=== PATIENT | male | born 1970 | race Caucasian/White ===

== ENCOUNTER 2019-03-06 12:06 | Inpatient (IN) | payer OTHER ==
[~2019-03-06] VITALS: Ht 182.9 cm; Wt 93.0 kg
--- NOTE | ~2019-03-06 | OP ---
[address] [address] OPERATIVE REPORT Name: TOBI RUCKER Room: [address] M.R.#: [id number] Admission: 03/06/19 Attend Phys: Tobi Smith MD Discharge: Date of : 66 Report #: [id number] THIS REPORT FOR: //name// CC: [facility] physician/PCP Tobi Smith DATE OF SERVICE: 03/07/2019 PREOPERATIVE DIAGNOSES: Right ureteropelvic junction stone and flank pain. POSTOPERATIVE DIAGNOSES: Right ureteropelvic junction stone and flank pain. PROCEDURE: Cystoscopy, right retrograde pyelogram, right ureteral stent placement. SURGEON: Ezequiel Sams MD ANESTHESIA: General. ESTIMATED BLOOD LOSS: None. DRAINS: A 6 x 28 right ureteral stent. SPECIMENS: None. COMPLICATIONS: None. INDICATIONS: This is a 48-year-old male who was admitted with right flank pain and a right ureteropelvic junction stone. See the consultation notes for details. Alternatives for management were discussed and he has decided to undergo cystoscopy with right retrograde pyelogram, possible right ureteroscopy, laser lithotripsy, stone extraction, stent placement. Risks of procedure were explained including but not limited to bleeding, infection, anesthesia, cardiopulmonary and vascular events, injuries to urethra, bladder, ureter, possible development of strictures, possible need for multiple stone procedures, possible inability to bypass obstruction. We also discussed the importance of timely followup regarding any stent left in place and the reasoning behind that. Discussed stent symptoms as well. He voices clear understanding of all this and wants to proceed. DESCRIPTION OF PROCEDURE: The patient was pretreated with IV Cipro. After induction of general anesthesia, he was positioned, prepped and draped in the lithotomy position. Timeout was performed. Cystourethroscopy was performed. The anterior urethra was normal. There is mild bilateral lobe impingement in the prostatic urethra. The bladder neck was somewhat elevated. The bladder was entered and systematically examined with 30 and [address] [place] [address] OPERATIVE REPORT Name: TOBI RUCKER Room: [address] [place] .R.#: [id number] Admission: 03/06/19 Attend Phys: Tobi Smith MD Discharge: Date of : 66 Report #: [id number] orifices were orthotopic. No blood was seen from either. There were no urethral or bladder lesions. Fluoroscopic interrogation was consistent with a stone in the region of the right ureteropelvic junction. A 5-Greenlandic ureteral catheter was advanced into the distal right ureter and contrast was given for a retrograde pyelogram. This reveals that the course and caliber of the mid and distal ureter were within normal limits. Proximal ureter was normal up to the ureteropelvic junction where a filling defect was noted. A small amount of contrast gets past this and the renal pelvis appears dilated, but otherwise unremarkable. The catheter was removed and a sensor wire was advanced up the right ureter with fluoroscopic guidance. This was manipulated past the stone and into the renal pelvis. Scope was withdrawn and then replaced alongside the wire for passage of a second wire in a similar fashion. The scope was then withdrawn leaving both wires in place. The original wire was used for passage of 11-Greenlandic obturator in hopes of passing 11/13 Greenlandic ureteral access sheath. The obturator would not pass with gentle manipulation and fluoroscopic guidance with kinking noted in the region of the prostatic urethra/bladder neck. The other wire was removed to try to facilitate passage of the obturator and this was unsuccessful as well. I elected to place a stent to allow for passive dilation and deferred management of his stone. The obturator was withdrawn, leaving the wire in place. The wire was loaded on the cystoscope and used for placement of a 6 x 28 right ureteral stent with good position confirmed in the renal pelvis fluoroscopically and in the bladder visually. Drainage from the stent was clear. The stone was visible alongside the stent in the region of the ureteropelvic junction. The bladder was emptied and the scope was removed. Lidocaine jelly was given per urethra. The patient tolerated the procedure well and was taken to the recovery room in stable condition. Plan will be to obtain a repeat radiograph as an outpatient and discuss again the options of shockwave lithotripsy versus repeat ureteroscopy. By: [id number] Sams MD /yadi
[~2019-03-06 12:06] MED LIST: BACTRIM DS TAB1 EACH PO; IBUPROFEN 800800 M1 PO; KEFLEX500 MG PO; NORCO 5-325 TA1 EACH PO; PHENERGAN 25 MG25 MG PO; TOBREX5 ML OP; ULTRAM 50MG TAB50 MG PO; ZOFRAN4 MG PO
[2019-03-06 12:13] VITALS: BP 147/90
[2019-03-06 12:24] LABS: URINE BILIRUBIN NEGATIVE (Negative); URINE BLOOD 3+ (Negative); URINE CLARITY CLEAR; URINE COLOR YELLOW; URINE GLUCOSE-RANDOM NEGATIVE (Negative); URINE KETONES NEGATIVE (Negative); URINE LEUKOCYTES-REFLEX NEGATIVE (Negative); URINE NITRITE-REFLEX NEGATIVE (Negative); URINE PROTEIN NEGATIVE (Negative); URINE UROBILINOGEN 0.2 E.U./dl (0.2-1.0)
[2019-03-06 12:29] LABS: NUCLEATED RBCS 0 /100WBC
[2019-03-06 12:33] LABS: ABSOLUTE LYMPHOCYTES 1.4 thou/uL (0.8-5.3)
[2019-03-06 12:35] LABS: BACTERIA-REFLEX None Seen /HPF (None Seen); HYALINE CASTS 0-3 Few /LPF (None Seen); MUCUS 4-6 Moderate strn/LPF (None Seen); SQUAMOUS 0-3 Few /LPF (0-3); URINE RBC 3-10 Few /HPF (0-2); URINE WBC-REFLEX None Seen /HPF (0-5)
[2019-03-06 12:36] LABS: CRYSTALS None Seen /LPF (None Seen)
[2019-03-06 12:37] LABS: ANION GAP 7 mmol/L (7-16); BUN 11 mg/dL (7-18); CALCIUM 8.8 mg/dL (8.5-10.1); CHLORIDE 104 mmol/L (98-107); CO2 28 mmol/L (21-32); CREATININE 1.1 mg/dL (0.6-1.3); GLUCOSE 112 mg/dL (70-99); POTASSIUM 4.2 mmol/L (3.5-5.1); SODIUM 139 mmol/L (136-145)
[2019-03-06 12:39] LABS: ABSOLUTE BASOPHILS 0.1 thou/uL (0.0-0.2); ABSOLUTE EOSINOPHILS 0.1 thou/uL (0.0-0.7); ABSOLUTE MONOCYTES 0.8 thou/uL (0.0-1.2); ABSOLUTE NEUTROPHILS 12.9 thou/uL (1.6-8.1); BASOPHILS 0.5 %; EOSINOPHILS 0.6 %; HEMATOCRIT 44.2 % (42.0-52.0); HEMOGLOBIN 15.2 gm/dL (14.0-18.0); LYMPHOCYTES 9.1 %; MCH 30.8 pg (26.0-34.0); MCHC 34.5 g/dL (28.0-37.0); MCV 89.3 fL (80.0-100.0); MONOCYTES 5.4 %; MPV 8.3 fl. (7.2-11.1); PLATELET COUNT* 272 thou/uL (150-400); POLYS 84.4 %; RBC 4.95 mil/uL (4.50-6.00); RDW-CV 13.2 % (10.5-14.5); WBC 15.3 thou/uL (4.0-11.0)
[2019-03-06 12:46] LABS: ALKALINE PHOSPHATASE 68 U/L (46-116); SGOT 22 U/L (15-37); SGPT 30 U/L (30-65); TOTAL BILIRUBIN 0.4 mg/dL (<0.1-1.0); TOTAL PROTEIN 7.6 g/dL (6.4-8.2); TROPONIN-I LEVEL <0.06 ng/mL (<0.06)
[2019-03-06 14:34] VITALS: BP 120/78
[2019-03-06 14:45] VITALS: BP 120/78
--- NOTE | 2019-03-06 18:18 | NUR ---
PATIENT ARRIVED TO UNIT AT APPROX 1445 FROM THE ED. ALERT AND ORIENTED X4. PAIN RELIEF GAINED FROM MEDS GIVEN IN ED. ADMISSION HISTORY AND ASSESMENT COMPLETED AND CHARTED. VSS ON ROOM AIR. FLUIDS STARTED AND INFUSING ORDERED. PATIENT UP AD SILVA. SCHEDULED TORADOL GIVEN FOR PAIN. NO OTHER COMPLAINTS THIS AFTERNOON. CALL LIGHT WITHIN REACH. HOURLY ROUNDS COMPLETED. WILL CONTINUE TO MONITOR.
[2019-03-06 20:00] VITALS: BP 114/68
[2019-03-07 04:59] LABS: HEMOGLOBIN 13.6 gm/dL (14.0-18.0); MCH 30.6 pg (26.0-34.0); MPV 8.5 fl. (7.2-11.1); RBC 4.45 mil/uL (4.50-6.00); RDW-CV 13.4 % (10.5-14.5); WBC 13.9 thou/uL (4.0-11.0)
[2019-03-07 05:05] LABS: CALCIUM 7.8 mg/dL (8.5-10.1); CREATININE 1.3 mg/dL (0.6-1.3); MAGNESIUM 1.8 mg/dL (1.8-2.4); POTASSIUM 3.8 mmol/L (3.5-5.1)
--- NOTE | 2019-03-07 05:57 | NUR ---
Alert and oriented x 4. He is up independently in the room. he is voiding adequately. Vitals were stable he has had scheduled toradol for pain and MS x 1 for pain. He denies nausea. He has slept well. He has had nothing by mouth since midnight.
[2019-03-07 08:58] VITALS: BP 119/74
[2019-03-07 10:24] VITALS: BP 119/74
[2019-03-07 10:45] VITALS: BP 124/86
[2019-03-07 17:10] VITALS: BP 139/81
[2019-03-07 17:13] VITALS: BP 139/81
[2019-03-07] MEDS ORDERED: LEVSIN0.125 MG PO (17:16)
[2019-03-07] MEDS ORDERED: FLOMAX0.4 MG PO (17:17)
[2019-03-07] MEDS ORDERED: NORCO 5-325 TA1 EAC1 PO (17:18)
[2019-03-07 17:19] VITALS: BP 139/81
--- NOTE | 2019-03-07 17:47 | NUR ---
PT HAS BEEN VOIDING LARGE AMOUNTS OF PINK CLEAR URINE.PRN PLAIN TYLENOL AND LEVSIN GIVEN WITH GOOD EFFECT. PT IS ALERT AND ORIENTATED. DISCHARGE INSTRUCTIONS DISCUSSED.PT TOLERATES PO FLUIDS AND SUPPER AND DENIES NAUSEA.PT TO CALL FOR FOLLOW UP APPOINTMENT.
== END 2019-03-07 18:39 | disposition home or self-care (01) | DRG 661 ==
LOC: M.ERS 12:06 → M.TBA-ER 14:00 → M.ORTHSURG 14:38
PROVIDERS: Physician Assistant; ADMIT Internal Medicine
PROC: 0T768DZ Dilation of Right Ureter with Intraluminal Device, Via Natural or Artificial Opening Endoscopic (ICD-10-PCS; principal; 2019-03-07)
PROC: BT1D1ZZ Fluoroscopy of Right Kidney, Ureter and Bladder using Low Osmolar Contrast (ICD-10-PCS; principal; 2019-03-07)
DX: N13.2 Hydronephrosis with renal and ureteral calculous obstruction (principal); F17.210 Nicotine dependence, cigarettes, uncomplicated; R73.9 Hyperglycemia, unspecified; F12.10 Cannabis abuse, uncomplicated; L92.8 Other granulomatous disorders of the skin and subcutaneous tissue; K80.20 Calculus of gallbladder without cholecystitis without obstruction; K40.90 Unilateral inguinal hernia, without obstruction or gangrene, not specified as recurrent; R31.29 Other microscopic hematuria; N28.9 Disorder of kidney and ureter, unspecified

== ENCOUNTER → 2019-04-01 | Day surgery (SDC) | payer OTHER ==
[~2019-04-01] MED LIST changes: +FLOMAX0.4 MG PO; +LEVSIN0.125 MG PO; +NORCO 5-325 TA1 EAC1 PO
--- NOTE | 2019-04-01 18:16 | OP ---
[address] [address] OPERATIVE REPORT Name: TOBI RUCKER Room: [facility].#: [id number] Admission: 04/01/19 Attend Phys: Ezequiel Sams MD Discharge: Date of : 66 Report #: [id number] THIS REPORT FOR: //name// CC: [facility] physician/PCP Ezequiel Sams DATE OF SERVICE: 04/01/2019 PREOPERATIVE DIAGNOSIS: Right ureteropelvic junction stone. POSTOPERATIVE DIAGNOSIS: Right ureteropelvic junction stone. PROCEDURE: Cystoscopy, right ureteral stent exchange, right ureterorenoscopy, laser lithotripsy, stone extraction. SURGEON: Ezequiel Sams MD ANESTHESIA: General. ESTIMATED BLOOD LOSS: None. DRAINS: A 6 x 28 right ureteral stent. SPECIMENS: Stone fragments. COMPLICATIONS: None. INDICATIONS: This is a 48-year-old male who has undergone right ureteral stent placement for an obstructing ureteropelvic junction calculus. Options for further management of the stone were discussed and he presents for cystoscopy with right ureteral stent exchange, ureteroscopy with laser lithotripsy and stone extraction. Risks of the procedure were explained. He voices clear understanding and he wants to proceed. DESCRIPTION OF PROCEDURE: The patient was pretreated with IV Cipro. After induction of general anesthesia, he was positioned, prepped and draped in the lithotomy position. Timeout procedure was performed. Cystourethroscopy was performed. The urethra is unchanged from prior exam. The bladder is unchanged as well except for the presence of an indwelling right ureteral stent. Fluoroscopic interrogation reveals good stent position and persistent stone at the ureteropelvic junction. There are no stones or lesions in the bladder. A sensor wire was advanced alongside the stent and into the right renal pelvis. The stent was grasped and removed leaving the wire in place. A semirigid ureteroscope was advanced alongside the wire and into the ureter. The distal ureter and mid ureter were normal except for edema, likely related to an indwelling stent. The scope would not advance [place] [address] OPERATIVE REPORT Name: TOBI RUCKER Room: [facility]..#: [id number] Admission: 04/01/19 Attend Phys: Ezequiel Sams MD Discharge: Date of : 66 Report #: [id number] level of the stone, so the scope was used to advance a second wire with a visual and fluoroscopic guidance into the renal pelvis. Scope was withdrawn leaving both wires in place. The second wire was used for passage of an 11-Uzbek obturator followed by passing it again in tandem with a 13-Uzbek x 36 cm ureteral access sheath. This passed easily with fluoroscopic guidance. The obturator and wire were removed leaving the sheath in place with the safety wire alongside. Flexible ureteroscope was passed per the sheath and the proximal ureter was examined. The proximal ureter was normal up to the ureteropelvic junction where edema was noted. Manipulation resulted in the stone migrating back into the renal pelvis. It was engaged there with a 272 micron holmium laser fiber and laser lithotripsy was performed. Stone broke up nicely and fragments were extracted periodically with a 0 tip basket. This process was continued until all remaining fragments were too small to entrap with the basket and thus appeared passable. Care was taken to avoid injury to the surrounding tissues and the wire. The proximal ureter was reexamined upon withdrawing the scope while leaving the wire in place. The sheath was then withdrawn and the mid and distal ureter reexamined. There were no ureteral stones or abnormalities except as mentioned previously. The wire was loaded on the cystoscope and used for placement of a 6 x 28 right ureteral stent with good position confirmed in the renal pelvis fluoroscopically and in the bladder visually. The bladder was emptied and the scope was removed. Stone fragments were sent for analysis. Lidocaine jelly was given per urethra. The patient tolerated the procedure well and was taken to the recovery room in stable condition. Plan will be to have him follow up in the office in approximately 1-2 weeks and remove his stent if a KUB does not show any significant residual fragments. <ELECTRONICALLY SIGNED> By: Ezequiel Sams MD 04/01/19 1816 1707 [id number] Sams MD /nt
[2019-04-11 14:11] LABS: STONE CA OXALATE MONOHYDRATE 98 % (()); STONE COLOR Brown (()); STONE COMMENT Note: (()); STONE WEIGHT 11.5 mg (())
== END | disposition home or self-care (01) ==
LOC: M.SUR 07:31
PROVIDERS: Urology
DX: N20.1 Calculus of ureter (principal); Z98.890 Other specified postprocedural states; Z79.899 Other long term (current) drug therapy